=== PATIENT | female | born 1980 | race Caucasian/White ===

== ENCOUNTER → 2016-11-07 | Outpatient (CLI) | payer BC ==
[2016-11-07 14:30] LABS: CHLORIDE,CL 110 mmol/L (98-110); SODIUM,NA 139 mmol/L (136-146)
--- NOTE | 2016-11-10 14:57 | CR ---
EXAM DATE: 11/07/16 PATIENT'S AGE: 36 Patient: CÉSAR DURHAM Facility: [place], [place] Site . Site : [id number] Study: XRay Chest [id number]/10/2017 2:24:20 PM Ordering Physician: Stella Bingham Final Report: INDICATIONS: Shortness of breath. TECHNIQUE: Chest 2 view. COMPARISON: Chest radiograph July 24, 2012. FINDINGS: No pneumothorax or pleural effusion. Lungs are clear. Cardiac and mediastinal contours are within normal limits. Upper abdomen and osseous structures show no acute abnormality. IMPRESSION: No acute cardiopulmonary disease. Dictated by Twin Mcgee MD @ Nov 10 2016 1:18AM (Electronic Signature) Report Signed by Proxy and Original Signed Document filed in the Medical Record. MTDD
== END ==
LOC: MW.CHIM 13:22
PROVIDERS: ATTEND Internal Medicine
DX: R07.89 Other chest pain (principal); R06.02 Shortness of breath
CPT/HCPCS: 36415; 71020; 71020-26; 80048; 85025; 93005

== ENCOUNTER → 2016-11-17 | Outpatient (CLI) | payer BC ==
--- NOTE | 2016-11-17 14:08 | NM ---
EXAMINATION: Nuclear medicine myocardial perfusion study with exercise stress test. HISTORY: Chest pain. PROCEDURE: Patient exercised according to Emmanuel protocol for 10 minutes and 15 seconds and achieved maximal hea rt rate of 171 beats per minute. Adequate exercise. Following intravenous administration of 27.2 mCi of technetium 99m sestamibi, stress and rest SPECT images including gating imaging was performed. FINDINGS: Stress and rest myocardial SPECT images demonstrates a trace breast attenuation artifact along the a pical inferior wall. Review of gated images demonstrates normal wall motion, contractility and wall thickening. The left ventricular ejection fraction is 75 %. The left ventricular chamber size is normal. IMPRESSION: 1. No evidence of myocardial ischemia. 2. Normal ventricular chamber size and function with ejection fraction of 75 %.
--- NOTE | 2016-11-17 19:35 | PCM.PRNOTE ---
- Free Text/Narrative Note: Exercise MIBI Indication CP Sestamibi Tc99 25 MCi was given at the peak HR Patient was brought to the stress test lab in postabsorptive state verbal and paper consent was obtained from patient Vital signs at resting state blood pressure of 102/72 with a heart rate of 63 EKG shows sinus rhythm no ST changes no Q waves Maximal heart rate of 171and target heart rate is 158 Patient reached the target heart rate, completed stage IV Emmanuel protocol Peak blood pressure is 124/74 Total exercise time [id number] No ST changes with a peak heart rate no arrhythmia METS 12.8 No symptom of chest pain or feeling dizzy Impression Normal hemodynamics, normal chronotropic, excellent exercise capacity, negative for ischemia on EKG Plan Nuclear portion pending
== END ==
LOC: MW.NM 06:57
PROVIDERS: ATTEND Internal Medicine
DX: R07.89 Other chest pain (principal); R06.02 Shortness of breath
CPT/HCPCS: 78451; 93017; A9500

== ENCOUNTER 2024-08-11 06:20 | Day surgery (SDC) | payer BC, OTHER ==
[~2024-08-11 06:20] MED LIST: Sodium Chloride 0.9% 10 ML Syringe FLUSH PRN; Sodium Chloride 0.9% 2.5 ML Syringe FLUSH PRN; Sodium Chloride 0.9% 20 ML SDV IV PRN; ceFAZolin 2 GM in Sodium Chloride 0.9% 50 ML IV ONE
[2024-08-11] MEDS: Lactated Ringers 1,000 ML IV SCH (06:57)
[2024-08-11] MEDS ORDERED: Propofol 200 MG/20 ML SDV ONE (07:11)
[2024-08-11] MEDS ORDERED: Ondansetron 4 MG/2 ML SDV ONE (07:12)
[2024-08-11] MEDS ORDERED: fentaNYL 100 MCG/2 ML SDV ONE (07:12)
[2024-08-11] MEDS ORDERED: Lidocaine 1% 5 ML VIAL ONE (07:12)
[2024-08-11] MEDS ORDERED: Dexamethasone 4 MG/ML 5 ML MDV ONE (07:12)
[2024-08-11] MEDS ORDERED: Midazolam 1 MG/ML 2 ML SDV ONE (07:12)
[2024-08-11] MEDS ORDERED: Rocuronium Bromide 50 MG/5 ML Syringe ONE (07:12)
[2024-08-11] MEDS ORDERED: Lidocaine 2% 5 ML SDV ONE (07:19)
[2024-08-11] MEDS ORDERED: Ropivacaine 0.5% 5 MG/ML 30 ML SDV ONE (07:23)
[2024-08-11] MEDS ORDERED: Water For Injection, Sterile 20 ML ONE (07:23)
[2024-08-11] MEDS ORDERED: dexmedeTOMIDine HCl 200 MCG/2 ML SDV ONE (07:23)
[2024-08-11] MEDS ORDERED: Morphine 10 MG/ML SDV ONE (07:25)
[2024-08-11] MEDS ORDERED: Bupivacaine 0.5% 30 ML SDV ONE (07:25)
[2024-08-11] MEDS ORDERED: fentaNYL 50 MCG/ML SDV IVPUSH PRN (07:52)
[2024-08-11] MEDS ORDERED: Phenylephrine HCl In 0.9% NaCl 1 MG/10 ML Syringe IVPUSH PRN (07:52)
[2024-08-11] MEDS ORDERED: Albuterol 0.083% 2.5 MG/3 ML Neb Soln NEB PRN (07:52)
[2024-08-11] MEDS ORDERED: Morphine 2 MG/ML SYRINGE IVPUSH PRN (07:52)
[2024-08-11] MEDS ORDERED: Naloxone 0.4 MG/ML SDV IVPUSH PRN (07:52)
[2024-08-11] MEDS ORDERED: Metoclopramide 10 MG/2 ML SDV IVPUSH PRN (07:52)
[2024-08-11] MEDS ORDERED: Ondansetron 4 MG/2 ML SDV IVPUSH PRN (07:52)
[2024-08-11] MEDS ORDERED: ceFAZolin 2 GM Vial ONE (08:22)
[2024-08-11] MEDS ORDERED: Phenylephrine HCl In 0.9% NaCl 1 MG/10 ML Syringe ONE (08:25)
[2024-08-11] MEDS ORDERED: Glycopyrrolate 0.2 MG/ML SDV ONE (08:37)
[2024-08-11] MEDS ORDERED: Ketorolac 30 MG/ML SDV ONE (08:49)
[2024-08-11] MEDS ORDERED: Sugammadex Sodium 200 MG/2 ML VIAL IV ONE (08:49)
[2024-08-11] MEDS: HYDROmorphone 1 MG/ML Syringe IVPUSH PRN (09:56)
== END 2024-08-11 11:50 | disposition home or self-care (01) ==
LOC: MW.SDS 06:20
PROVIDERS: ATTEND Surgery
DX: K82.4 Cholesterolosis of gallbladder (principal); F17.210 Nicotine dependence, cigarettes, uncomplicated
CPT/HCPCS: 47562; 64488; J0131; J0665; J0690; J1100; J1171; J1596; J1885; J2250; J2272; J2371; J2704; J2795; J3010; J3490; J7120; 00790; J2405